=== PATIENT | female | born 1975 | race Two or more races ===

== ENCOUNTER 2017-01-11 18:31 | Inpatient (IN) | payer BC, SELFPAY ==
[~2017-01-11] VITALS: Ht 162.6 cm; Wt 77.3 kg
[2017-01-11] MEDS: DOCUSATE SODIUM 100 MG CAP PO SCH (03:00)
[2017-01-11] MEDS ORDERED: PHEN-501 (18:46)
[2017-01-11] MEDS ORDERED: NITR100C2 (18:46)
[2017-01-11 20:24] LABS: MICROSCOPIC INDICATED? MAN YES (NO)
[2017-01-11 20:42] LABS: BACTERIA, URINE MOD AMOUNT; HYALINE CAST, URINE NONE SEEN /lpf (0-1); SQUAMOUS EPITHELIAL CELL URINE SMALL AMOUNT /hpf (SMALL AMT); WBC, URINE 30-40 /hpf (0-3)
[2017-01-11 20:43] LABS: MICROSCOPIC EXAM PERFORMED
[2017-01-11] MEDS ORDERED: NS 1,000 ML IV ONE ×2 (20:45→23:00)
[2017-01-11 21:23] LABS: BASO % 0.2 % (0.0-1.0); EOS # 0.1 K/mm3 (0.0-0.50); EOS % 0.6 % (0.0-3.0); LARGE UNSTAINED CELL # 0.2 K/mm3 (0.0-0.4); LARGE UNSTAINED CELL % 0.8 % (0.0-4.0); LYMPH % 9.5 % (24.0-44.0); MEAN CORPUSCULAR HEMOGLOBIN 32.2 pg (27.0-33.0); MEAN CORPUSCULAR HGB CONC 34.6 g/dl (32.0-36.5); MONO # 1.1 K/mm3 (0.0-0.8); MONO % 5.4 % (0.0-5.0); NEUTROPHILS # 16.1 K/mm3 (1.8-7.7); NEUTROPHILS % 83.5 % (36.0-66.0); PLATELET COUNT, AUTOMATED 200 k/mm3 (150-450); RED CELL DISTRIBUTION WIDTH 12.3 % (11.5-14.5); WHITE BLOOD COUNT 19.3 K/mm3 (4.0-10.0)
[2017-01-11 21:30] LABS: ANION GAP 13 MEQ/L (8-16); BLOOD UREA NITROGEN 8 MG/DL (7-18); CALCIUM LEVEL 8.5 MG/DL (8.5-10.1); CARBON DIOXIDE LEVEL 18 MEQ/L (21-32); CHLORIDE LEVEL 107 MEQ/L (98-107); CREATININE FOR GFR 0.64 MG/DL (0.55-1.02); GLOMERULAR FILTRATION RATE > 60.0 (>60); GLUCOSE, FASTING 102 MG/DL (70-105); POTASSIUM SERUM 4.1 MEQ/L (3.5-5.1); SODIUM LEVEL 138 MEQ/L (136-145)
[2017-01-11] MEDS ORDERED: cefTRIAXone SOD 1 GM in D5W MINI-BAG PLUS 50 ML IV ONE (21:30)
[2017-01-11] MEDS ORDERED: KETOROLAC 30 MG/ML VIAL (J1885) IV ONE (22:30)
--- NOTE | 2017-01-11 22:50 | REPUSA ---
CLINICAL HISTORY: Right flank pain. TECHNIQUE: CT abdomen and pelvis without contrast. Total DLP 560 mGy*cm. COMPARISON: No pertinent prior studies are available at this time. CT ABDOMEN WITHOUT CONTRAST: Lung bases: No lung base infiltrate or effusion. Liver: 19 cm hepatomegaly. No intrahepatic ductal dilation. Gallbladder: Normally distended. Pancreas: No pancreatic duct dilation. Bowel loops: Nondistended. Spleen: 12.4 cm splenomegaly. Adrenals: Normal size. Right kidney: There is right perinephric stranding and mild hydroureter. However, a discrete stone is not seen along the course of the ureter and there is no kimberlee hydronephrosis. Left kidney: Punctate 1 mm peripapillary stones (coronal reconstruction image 58) without hydronephro sis. Aorta: Normal caliber. Peritoneum: No free air. Anterior abdominal wall: There is a small low midline fatty hernia. CT PELVIS WITHOUT CONTRAST: Colon: Nondistended. Bladder: Normally distended. Pelvic organs: Unremarkable. Peritoneum: No fluid. Skeleton: No acute findings. IMPRESSION: 1. Right perinephric stranding and mild hydroureter without visible stone. This may represent sequela e of recently passed stone. 2. Left nephrolithiasis without hydronephrosis. 3. Mild hepatosplenomegaly. Correlate with hepatic enzymes to exclude underlying liver disease.
[2017-01-12] MEDS ORDERED: MORPHINE 2 MG/ML 1ML SYRINGE IV PRN ×2 (00:30)
--- NOTE | 2017-01-12 01:47 | HPE ---
DATE OF ADMISSION: 01/12/2017 PRIMARY CARE PROVIDER: None listed. CHIEF COMPLAINT: Right flank pain. HISTORY OF PRESENT ILLNESS: 41-year-old female that was seen and treated to Urgent Care a few days ago for urinary tract infection placed on Pyridium and Macrobid stated that her symptoms have gotten worse over the last 24 hours. She has had fevers, chills, rigors since last night, some nausea, vomiting. She states that she feels that she continues to void frequently. She denies any hematuria or dysuria, but is now having right flank pain as well and was instructed to come to the emergency department. PAST MEDICAL HISTORY: None reported. She has been relatively healthy. PAST SURGICAL HISTORY: times five with five children. She does have a history of deviated septum repair. FAMILY HISTORY: Noncontributory. SOCIAL HISTORY: She denies tobacco use. No alcohol use. No IV drug use. No recent sick contacts. No pets. ALLERGIES: No known drug allergies. CURRENT HOME MEDICATIONS: - Pyridium 200 mg three times a day - Macrobid 100 mg twice a day - [id number] Motrin 1 to 2 tablets three to four times daily as needed REVIEW OF SYSTEMS: CONSTITUTIONAL: She has had fevers, chills or rigors as indicated above. HEENT: She denies headache, lightheaded dizziness, blurry vision, double vision or tinnitus. No difficulty with speech or swallow. CARDIOVASCULAR: No chest pain, palpitations, no paroxysmal nocturnal dyspnea (PND), orthopnea. No lower extremity edema. PULMONARY: She denies productive sputum, cough or hemoptysis. GASTROINTESTINAL (GI): No nausea, vomiting, diarrhea. Bowel movements have been regular. She denies any hematochezia. GENITOURINARY (): She has had dysuria a few days ago, some frequency. Her urination has been discolored from the Pyridium, but she denies any hematuria and she does have a right flank pain. MUSCULOSKELETAL: No bone loss or joint pain swelling or erythema. NEUROLOGIC: She denies paresthesias, paralysis. No headaches. ENDOCRINE: Negative for diabetes. No history of thyroid disorder. LYMPHATICS: No lumps, bumps, swelling in neck, axilla or groin. No night sweats or weight loss prior to this recent urinary tract infection. HEMATOLOGY: Negative for bleeding or bruising disorder. No prior history of venous thromboembolism. ONCOLOGY: Negative for cancer. PSYCHIATRIC: Negative for depression. No suicidal ideation. No audio or visual hallucinations. 10-point review of systems complete pertinent positives are listed. PHYSICAL EXAMINATION: Temperature is 97.6, pulse is 112, respiratory rate 18 nonlabored, blood pressure (BP) 115/73, SPO2 is 97% on room air. She describes her right flank pain as 7/10 and sharp in nature. HEENT: Head is atraumatic and cephalic. Eyes: Pupils equally round and reactive to light. Throat clear. NECK: Supple. No adenopathy. No jugular venous distension (JVD). LUNGS: Clear to auscultation bilaterally. HEART: Regular rhythm. abdomen: Soft with some vague suprapubic tenderness. Positive bowel sounds. She does have some right costovertebral angle (CVA) tenderness. EXTREMITIES: No edema or calf tenderness. LABORATORY DATA: White count is 19.3, hemoglobin 14.2, platelets 200,000. Sodium 138, potassium 4.1, chloride 107, bicarbonate 18, anion gap 13, BUN is 8, creatinine 0.64, glucose 102. Urinalysis: Hazy 3 to 5 red blood cells, 30 to 40 white blood cells, moderate amount of bacteria. Urine culture and blood cultures are pending at this time. CT scan of the abdomen and pelvis does demonstrate perinephric stranding on the right, mild hydroureter without visible stone may represent sequela of a recently passed stone. She does have noted left nephrolithiasis without hydronephrosis and mild hepatosplenomegaly, which we will go ahead and check liver enzymes on her as well. IMPRESSION: Ms. Linder is a pleasant 41-year-old female who unfortunately has a right pyelonephritis with elevated white count. Blood pressure is normal. There was no lactic acid ordered on admission. I will go ahead and add that on. She did however receive IV fluid bolus and will continue with IV fluids as outlined, as well as Rocephin that has been started already PROBLEM LIST: 1. Pyelonephritis. 2. Hepatosplenomegaly. Will go ahead and check liver function tests. 3. Otherwise healthy, 41-year-old female. PLAN: The patient will be admitted to [facility]. IV fluids, IV Rocephin. Continue with pain control and IV fluids as outlined. Will check urine culture, blood cultures, deep vein thrombosis (DVT) prophylaxis with Lovenox. DISPOSITION: Anticipate home discharge after two midnights.
[2017-01-12 02:40] VITALS: BP 133/79
[2017-01-12] MEDS: NS 1,000 ML IV SCH ×4 (03:10→21:36)
[2017-01-12] MEDS: ACETAMINOPHEN TAB 650MG DOSE (2X325MG) PO PRN ×3 (03:11→21:36)
[2017-01-12] MEDS: PERCOCET 5MG/325MG TAB PO PRN ×2 (03:12→16:03)
[2017-01-12] MEDS: ONDANSETRON 4MG/2ML VIAL (J2405) IV PRN ×2 (03:26→13:55)
[2017-01-12] MEDS: KETOROLAC 30 MG/ML VIAL (J1885) IV SCH ×4 (05:01→21:36)
[2017-01-12 06:59] LABS: MEAN CORPUSCULAR HEMOGLOBIN 32.5 pg (27.0-33.0); MEAN CORPUSCULAR HGB CONC 34.7 g/dl (32.0-36.5); MEAN CORPUSCULAR VOLUME 93.7 fl (80.0-96.0); RED CELL DISTRIBUTION WIDTH 12.4 % (11.5-14.5); WHITE BLOOD COUNT 12.4 K/mm3 (4.0-10.0)
[2017-01-12 07:29] LABS: ALBUMIN 2.8 GM/DL (3.2-5.2); ANION GAP 9 MEQ/L (8-16); BLOOD UREA NITROGEN 7 MG/DL (7-18); CALCIUM LEVEL 7.6 MG/DL (8.5-10.1); CARBON DIOXIDE LEVEL 22 MEQ/L (21-32); CHLORIDE LEVEL 111 MEQ/L (98-107); CREATININE FOR GFR 0.47 MG/DL (0.55-1.02); GLOMERULAR FILTRATION RATE > 60.0 (>60); GLUCOSE, FASTING 82 MG/DL (70-105); PHOSPHORUS LEVEL 2.8 MG/DL (2.5-4.9); POTASSIUM SERUM 3.4 MEQ/L (3.5-5.1); SODIUM LEVEL 142 MEQ/L (136-145)
[2017-01-12 08:00] VITALS: BP 100/55
[2017-01-12] MEDS: DOCUSATE SODIUM 100 MG CAP PO SCH ×2 (08:57→21:36)
[2017-01-12] MEDS: ENOXAPARIN 40 MG/0.4 ML SYRINGE (J1650) SC SCH (08:58)
--- NOTE | 2017-01-12 13:51 | IPNPDOC ---
Date Seen The patient was seen on 01/12/17. Progress Note Hospitalist Progress Note Subjective: Patient states that she already feels better than when she arrived Objective: Physical Exam: Vitals: Vital Sign - Last 24 Hours 01/11/17 01/11/17 01/11/17 01/12/17 18:32 22:42 22:51 00:11 Temp 97.6 Pulse 135 112 Resp 18 18 16 B/P (MAP) 156/81 (106) 115/73 (87) Pulse Ox 97 97 O2 Delivery Room Air 01/12/17 01/12/17 01/12/17 01/12/17 00:56 01:26 02:40 03:12 Temp 100.1 101.9 Pulse 108 119 Resp 18 18 18 18 B/P (MAP) 118/60 (79) 133/79 (97) Pulse Ox 99 100 O2 Delivery Room Air Room Air 01/12/17 01/12/17 03:42 08:00 Temp 97.2 Pulse 78 Resp 18 18 B/P (MAP) 100/55 (70) Pulse Ox 97 O2 Delivery Room Air General: Awake, Alert, no acute distress HEENT: Normocephalic, atraumatic, extraocular movements intact CV: Regular rate and rhythm Lungs: Clear to auscultation bilaterally Abd: Soft, bowel sounds present, mild tenderness to palpation in the right lower quadrant Extremities: No edema Neuro: Alert and oriented 3, normal speech Psych: And normal mood and affect Labs and Imaging: Laboratory Tests 01/11/17 20:47 Red Blood Count 4.43, Mean Corpuscular Volume 93.0, Mean Corpuscular Hemoglobin 32.2, Mean Corpuscular Hemoglobin Concent 34.6, Red Cell Distribution Width 12.3 , Neutrophils (%) (Auto) 83.5 H, Lymphocytes (%) (Auto) 9.5 L, Monocytes (%) ( Auto) 5.4 H, Eosinophils (%) (Auto) 0.6, Basophils (%) (Auto) 0.2, Neutrophils # (Auto) 16.1 H, Lymphocytes # (Auto) 2.0, Monocytes # (Auto) 1.1 H, Eosinophils # (Auto) 0.1, Basophils # (Auto) 0.0, Calcium Level 8.5 01/12/17 06:38 Red Blood Count 3.49 L, Mean Corpuscular Volume 93.7, Mean Corpuscular Hemoglobin 32.5, Mean Corpuscular Hemoglobin Concent 34.7, Red Cell Distribution Width 12.4, Anion Gap 9 Assessment and Plan: 41-year-old healthy female who presented to the emergency department with fevers , chills, vomiting and has been admitted with pyelonephritis. 1. Pyelonephritis: The patient was febrile to 101.9 upon admission, but fevers seem to be subsiding at this point. Her WBC has already improved from 19.3- 12.4. Blood and urine cultures are pending. We will continue Rocephin, as well as normal saline. CT of the abdomen and pelvis does not show any evidence of abscess 2. Hepatosplenomegaly: This was noted on CT of the abdomen and pelvis. We will check liver function tests. DVT prophylaxis: Lovenox Dispo: anticipate home in the next 24-48 hours VS, I&O, 24H, Fishbone Vital Signs/I&O Vital Signs Date Time Temp Pulse Resp B/P (MAP) Pulse Ox O2 Delivery O2 Flow Rate FiO2 01/12/17 08:00 97.2 78 18 100/55 (70) 97 Room Air I&O- Last 24 Hours up to 6 AM 01/12/17 06:00 Intake Total 2290 ml Output Total 400 ml Balance 1890 ml Laboratory Data 24H LABS Laboratory Tests 2 01/11/17 20:15: Bedside Urine Color (LAB) AMBERH, Bedside Urine Appearance (LAB) HAZYH, Bedside Urine pH (LAB) OBSCUREDH, Bedside Urine Specific [place] (LAB 1.016, Bedside Urine Protein (LAB) OBSCUREDH, Bedside Urine Glucose (UA) OBSCUREDH, Bedside Urine Ketones (LAB) OBSCUREDH, Bedside Urine Blood OBSCUREDH, Bedside Urine Nitrite (LAB) OBSCUREDH, Bedside Urine Bilirubin (LAB) OBSCUREDH, Bedside Urine Urobilinogen (LAB) OBSCUREDH, Bedside Urine Leukocyte Esterase (L OBSCUREDH, Urine WBC 30-40H, Urine RBC 3-5H, Urine Squamous Epithelial Cells SMALL AMOUNT, Urine Bacteria MOD AMOUNTH, Urine Hyaline Casts NONE SEEN, Urine Mucus SMALL AMOUNTH, Urine Sediment Examination PERFORMED 01/11/17 20:47: White Blood Count 19.3H, Red Blood Count 4.43, Hemoglobin 14.2, Hematocrit 41.2 , Mean Corpuscular Volume 93.0, Mean Corpuscular Hemoglobin 32.2, Mean Corpuscular Hemoglobin Concent 34.6, Red Cell Distribution Width 12.3, Platelet Count 200, Neutrophils (%) (Auto) 83.5H, Lymphocytes (%) (Auto) 9.5L, Monocytes (%) (Auto) 5.4H, Eosinophils (%) (Auto) 0.6, Basophils (%) (Auto) 0.2, Neutrophils # (Auto) 16.1H, Lymphocytes # (Auto) 2.0, Monocytes # (Auto) 1.1H, Eosinophils # (Auto) 0.1, Basophils # (Auto) 0.0, Large Unclassified Cells % 0.8 , Large Unclassified Cells # 0.2, Anion Gap 13, Glomerular Filtration Rate > 60.0, Blood Urea Nitrogen 8, Creatinine 0.64, Sodium Level 138, Potassium Level 4.1, Chloride Level 107, Carbon Dioxide Level 18L, Calcium Level 8.5 01/12/17 02:05: Lactic Acid Level 0.9 01/12/17 06:38: Anion Gap 9, Glomerular Filtration Rate > 60.0, Blood Urea Nitrogen 7, Creatinine 0.47L, Sodium Level 142, Potassium Level 3.4L, Chloride Level 111H, Carbon Dioxide Level 22, Calcium Level 7.6L, Phosphorus Level 2.8, Albumin 2.8L CBC/BMP Laboratory Tests 01/11/17 20:47 Red Blood Count 4.43, Mean Corpuscular Volume 93.0, Mean Corpuscular Hemoglobin 32.2, Mean Corpuscular Hemoglobin Concent 34.6, Red Cell Distribution Width 12.3 , Neutrophils (%) (Auto) 83.5 H, Lymphocytes (%) (Auto) 9.5 L, Monocytes (%) ( Auto) 5.4 H, Eosinophils (%) (Auto) 0.6, Basophils (%) (Auto) 0.2, Neutrophils # (Auto) 16.1 H, Lymphocytes # (Auto) 2.0, Monocytes # (Auto) 1.1 H, Eosinophils # (Auto) 0.1, Basophils # (Auto) 0.0, Calcium Level 8.5 01/12/17 06:38 Red Blood Count 3.49 L, Mean Corpuscular Volume 93.7, Mean Corpuscular Hemoglobin 32.5, Mean Corpuscular Hemoglobin Concent 34.7, Red Cell Distribution Width 12.4, Anion Gap 9 Microbiology Microbiology 01/12/17 Blood Culture, Received Pending 01/12/17 Blood Culture, Received Pending 01/11/17 Urine Culture - Final, Complete TAHIRA KNIGHT Jan 12, 2017 13:51
[2017-01-12] MEDS ORDERED: SODIUM CHLORIDE NASAL 0.65% SPRAY BTL (OCEAN) PRN (14:00)
[2017-01-12 16:00] VITALS: BP 138/89
[2017-01-12 20:00] VITALS: BP 134/80
[2017-01-12] MEDS: cefTRIAXone SOD 1 GM in D5W MINI-BAG PLUS 50 ML IV SCH (21:36)
[2017-01-13] VITALS: BP 102/57
[2017-01-13] MEDS: NS 1,000 ML IV SCH ×2 (03:14→11:46)
[2017-01-13] MEDS: KETOROLAC 30 MG/ML VIAL (J1885) IV SCH ×2 (03:14→09:57)
[2017-01-13] MEDS: ACETAMINOPHEN TAB 650MG DOSE (2X325MG) PO PRN (03:14)
[2017-01-13 04:00] VITALS: BP 145/77
[2017-01-13 06:44] LABS: MEAN CORPUSCULAR HEMOGLOBIN 32.2 pg (27.0-33.0); MEAN CORPUSCULAR HGB CONC 35.1 g/dl (32.0-36.5); MEAN CORPUSCULAR VOLUME 91.5 fl (80.0-96.0); RED CELL DISTRIBUTION WIDTH 12.1 % (11.5-14.5); WHITE BLOOD COUNT 7.2 K/mm3 (4.0-10.0)
[2017-01-13 07:10] LABS: ALBUMIN 2.7 GM/DL (3.2-5.2); ALBUMIN/GLOBULIN RATIO 0.75 (1.00-1.93); ALKALINE PHOSPHATASE 71 U/L (45-117); ALT/SGPT 65 U/L (12-78); ANION GAP 6 MEQ/L (8-16); AST/SGOT 56 U/L (15-37); BILIRUBIN,TOTAL 0.3 MG/DL (0.2-1.0); BLOOD UREA NITROGEN 5 MG/DL (7-18); CALCIUM LEVEL 7.8 MG/DL (8.5-10.1); CARBON DIOXIDE LEVEL 24 MEQ/L (21-32); CHLORIDE LEVEL 113 MEQ/L (98-107); CREATININE FOR GFR 0.51 MG/DL (0.55-1.02); GLOMERULAR FILTRATION RATE > 60.0 (>60); GLUCOSE, FASTING 97 MG/DL (70-105); MAGNESIUM LEVEL 2.1 MG/DL (1.8-2.4); PHOSPHORUS LEVEL 1.5 MG/DL (2.5-4.9); POTASSIUM SERUM 3.4 MEQ/L (3.5-5.1); SODIUM LEVEL 143 MEQ/L (136-145); TOTAL PROTEIN 6.3 GM/DL (6.4-8.2)
[2017-01-13 08:00] VITALS: BP 129/81
[2017-01-13] MEDS ORDERED: POTASSIUM CHLORIDE 10 MEQ SR TABLET PO ONE (08:00)
[2017-01-13] MEDS: DOCUSATE SODIUM 100 MG CAP PO SCH ×2 (08:47→20:42)
[2017-01-13] MEDS: ENOXAPARIN 40 MG/0.4 ML SYRINGE (J1650) SC SCH (08:48)
[2017-01-13] MEDS: ONDANSETRON 4MG/2ML VIAL (J2405) IV PRN (10:07)
[2017-01-13 12:00] VITALS: BP 134/89
[2017-01-13] MEDS ORDERED: KETOROLAC TROMETHAMINE 10 MG TAB PO PRN (14:15)
[2017-01-13] MEDS: PERCOCET 5MG/325MG TAB PO PRN ×2 (14:15→20:41)
--- NOTE | 2017-01-13 14:21 | IPNPDOC ---
Date Seen The patient was seen on 01/13/17. Progress Note Hospitalist Progress Note Subjective: Patient states that the pain in her back is improving Objective: Physical Exam: Vitals: Vital Sign - Last 24 Hours 01/12/17 01/12/17 01/12/17 01/12/17 14:40 16:00 16:03 20:00 Temp 102.7 99.3 99.4 Pulse 110 108 Resp 18 16 18 B/P (MAP) 138/89 (105) 134/80 (98) Pulse Ox 99 98 O2 Delivery Room Air Room Air 01/13/17 01/13/17 01/13/17 01/13/17 00:00 04:00 08:00 12:00 Temp 98.5 99.2 98.4 98.2 Pulse 100 113 97 94 Resp 18 20 16 18 B/P (MAP) 102/57 (72) 145/77 (99) 129/81 (97) 134/89 (104) Pulse Ox 98 100 98 98 O2 Delivery Room Air Room Air Room Air Room Air General: Awake, Alert, no acute distress HEENT: Normocephalic, atraumatic, extraocular movements intact CV: Regular rate and rhythm Lungs: Clear to auscultation bilaterally Abd: Soft, bowel sounds present, no TTP Extremities: No edema Neuro: Alert and oriented 3, normal speech Psych: normal mood and affect Labs and Imaging: Laboratory Tests 01/13/17 06:34 Red Blood Count 3.62 L, Mean Corpuscular Volume 91.5, Mean Corpuscular Hemoglobin 32.2, Mean Corpuscular Hemoglobin Concent 35.1, Red Cell Distribution Width 12.1, Calcium Level 7.8 L, Phosphorus Level 1.5 #L, Aspartate Amino Transf (AST/SGOT) 56 H, Alanine Aminotransferase (ALT/SGPT) 65, Alkaline Phosphatase 71, Total Bilirubin 0.3, Total Protein 6.3 L, Albumin 2.7 L Assessment and Plan: 41-year-old healthy female who presented to the emergency department with fevers , chills, vomiting and has been admitted with pyelonephritis. 1. Pyelonephritis: The patient was febrile to 102.7 yesterday afternoon. Her WBC has already improved from 19.3 to WNL. Blood cultures are pending. Urine cx from the ED is not growing anything, but the patient had already received macrobid; outpatient urine cx is growing E.coli sensitive to cephalosporins. We will continue Rocephin, third dose tonight, then change to PO keflex. CT of the abdomen and pelvis does not show any evidence of abscess 2. Hepatosplenomegaly: This was noted on CT of the abdomen and pelvis. LFTs are normal other than a mildly elevated AST. She will need this rechecked as an outpatient after her acute illness resolves. 3. : Patient tells me today that she is pumping her breastmilk and hopes to give it to her child. Confirmed via [facility] that there is no contraindication to rocephin or keflex while . 4. Hypokalemia: Replacing. DVT prophylaxis: Lovenox Dispo: anticipate home tomorrow if afebrile VS, I&O, 24H, Fishbone Vital Signs/I&O Vital Signs Date Time Temp Pulse Resp B/P (MAP) Pulse Ox O2 Delivery O2 Flow Rate FiO2 01/13/17 12:00 98.2 94 18 134/89 (104) 98 Room Air I&O- Last 24 Hours up to 6 AM 01/13/17 06:00 Intake Total 3120 ml Output Total 1700 ml Balance 1420 ml Laboratory Data 24H LABS Laboratory Tests 2 01/13/17 06:34: Anion Gap 6L, Glomerular Filtration Rate > 60.0, Blood Urea Nitrogen 5L, Creatinine 0.51L, Sodium Level 143, Potassium Level 3.4L, Chloride Level 113H, Carbon Dioxide Level 24, Calcium Level 7.8L, Phosphorus Level 1.5#L, Aspartate Amino Transf (AST/SGOT) 56H, Alanine Aminotransferase (ALT/SGPT) 65, Alkaline Phosphatase 71, Total Bilirubin 0.3, Total Protein 6.3L, Albumin 2.7L, Magnesium Level 2.1, Albumin/Globulin Ratio 0.75L CBC/BMP Laboratory Tests 01/13/17 06:34 Red Blood Count 3.62 L, Mean Corpuscular Volume 91.5, Mean Corpuscular Hemoglobin 32.2, Mean Corpuscular Hemoglobin Concent 35.1, Red Cell Distribution Width 12.1, Calcium Level 7.8 L, Phosphorus Level 1.5 #L, Aspartate Amino Transf (AST/SGOT) 56 H, Alanine Aminotransferase (ALT/SGPT) 65, Alkaline Phosphatase 71, Total Bilirubin 0.3, Total Protein 6.3 L, Albumin 2.7 L Microbiology Microbiology 01/12/17 Blood Culture - Preliminary, Resulted No growth after 24 hours . All specim... 01/12/17 Blood Culture - Preliminary, Resulted No growth after 24 hours . All specim... 01/11/17 Urine Culture - Final, Complete TAHIRA KNIGHT Jan 13, 2017 14:21
[2017-01-13 16:00] VITALS: BP 139/88
[2017-01-13] MEDS ORDERED: SLF 3 ML SYR IV PRN (16:15)
[2017-01-13 20:00] VITALS: BP 134/92
[2017-01-13] MEDS: SLF 3 ML SYR IV SCH (22:00)
[2017-01-13] MEDS: cefTRIAXone SOD 1 GM in D5W MINI-BAG PLUS 50 ML IV SCH (22:49)
[2017-01-14] VITALS: BP 114/75
[2017-01-14] MEDS: PERCOCET 5MG/325MG TAB PO PRN ×2 (03:06→08:51)
[2017-01-14] MEDS: SLF 3 ML SYR IV SCH (06:00)
[2017-01-14 08:00] VITALS: BP 139/86
[2017-01-14] MEDS: ONDANSETRON 4MG/2ML VIAL (J2405) IV PRN (08:21)
[2017-01-14 08:25] LABS: MEAN CORPUSCULAR HEMOGLOBIN 31.2 pg (27.0-33.0); MEAN CORPUSCULAR HGB CONC 34.2 g/dl (32.0-36.5); MEAN CORPUSCULAR VOLUME 91.4 fl (80.0-96.0); RED CELL DISTRIBUTION WIDTH 12.4 % (11.5-14.5); WHITE BLOOD COUNT 6.9 K/mm3 (4.0-10.0)
[2017-01-14 08:40] LABS: ALBUMIN 2.6 GM/DL (3.2-5.2); ANION GAP 8 MEQ/L (8-16); BLOOD UREA NITROGEN 4 MG/DL (7-18); CALCIUM LEVEL 8.2 MG/DL (8.5-10.1); CARBON DIOXIDE LEVEL 25 MEQ/L (21-32); CHLORIDE LEVEL 109 MEQ/L (98-107); CREATININE FOR GFR 0.51 MG/DL (0.55-1.02); GLOMERULAR FILTRATION RATE > 60.0 (>60); GLUCOSE, FASTING 88 MG/DL (70-105); MAGNESIUM LEVEL 2.1 MG/DL (1.8-2.4); PHOSPHORUS LEVEL 3.4 MG/DL (2.5-4.9); POTASSIUM SERUM 3.9 MEQ/L (3.5-5.1); SODIUM LEVEL 142 MEQ/L (136-145)
[2017-01-14] MEDS: ENOXAPARIN 40 MG/0.4 ML SYRINGE (J1650) SC SCH (08:50)
[2017-01-14] MEDS: DOCUSATE SODIUM 100 MG CAP PO SCH ×2 (08:50→08:59)
[2017-01-14] MEDS: ACETAMINOPHEN TAB 650MG DOSE (2X325MG) PO PRN (13:09)
[2017-01-14] MEDS ORDERED: KEFL500C17 PO (13:36)
[2017-01-14] MEDS ORDERED: ONDA4TAB5 PO (13:36)
--- NOTE | 2017-01-15 14:20 | DS.PDOC ---
Discharge Summary General Date of Admission Jan 12, 2017 at 00:28 Date of Discharge 01/14/2017 Discharge Summary DISCHARGE SUMMARY DATE OF ADMISSION: 01/12/2017 DATE OF DISCHARGE: 01/14/2017 PRIMARY CARE PHYSICIAN: Leroy - was set up with Jody Frost at discharge DISCHARGE DIAGNOS(E)S: Acute pyelonephritis Hepatosplenomegaly HPI & HOSPITAL COURSE: 41-year-old healthy female who presented to the emergency department with fevers , chills, vomiting and has been admitted with pyelonephritis. 1. Pyelonephritis: The patient has now been afebrile >24H. Her WBC has already improved from 19.3 to WNL. Blood cultures are negative. Urine cx from the ED is not growing anything, but the patient had already received macrobid; outpatient urine cx is growing E.coli sensitive to cephalosporins. She received 3 doses Rocephin, and at discharge we will change to PO keflex. CT of the abdomen and pelvis does not show any evidence of abscess 2. Hepatosplenomegaly: This was noted on CT of the abdomen and pelvis. LFTs are normal other than a mildly elevated AST. She will need this rechecked as an outpatient after her acute illness resolves. 3. : Patient told me on 01/13 that she is pumping her breastmilk and hopes to give it to her child. Confirmed via [facility] that there is no contraindication to rocephin or keflex while . 4. Hypokalemia: Replaced. DVT prophylaxis: Lovenox PHYSICAL EXAMINATION ON DISCHARGE: VITAL SIGNS: Vital Signs Date Time Temp Pulse Resp B/P (MAP) Pulse Ox O2 Delivery O2 Flow Rate FiO2 01/14/17 09:30 18 01/14/17 08:00 97.0 87 139/86 (103) 100 Room Air General: Awake, Alert, no acute distress HEENT: Normocephalic, atraumatic, extraocular movements intact CV: Regular rate and rhythm Lungs: Clear to auscultation bilaterally Abd: Soft, bowel sounds present, no TTP Extremities: No edema Neuro: Alert and oriented 3, normal speech Psych: normal mood and affect DISPOSITION: Home The patient requested a note for her to be able to give to her 's work. Per the patient's request, I included the following details: Dates that the patient was admitted for, the fact that she had a kidney infection, the fact that she will need 11 more days of antibiotics, and the fact that she'll need to see her PCP next week. DISCHARGE INSTRUCTIONS: Follow up with new PCP Jody Crews within one week. PCP will need to check LFTs when patient has recovered from this acute illness. If symptoms return, or if you experience worsening of your symptoms, please call your doctor or return to the emergency department. ITEMS THAT NEED OUTPATIENT FOLLOWUP: Recheck of LFTs when patient has recovered from this acute illness Patient was seen and examined by me on the day of discharge, and I spent a total time of less than 30 minutes on this discharge. Vital Signs/I&Os Vital Signs Date Time Temp Pulse Resp B/P (MAP) Pulse Ox O2 Delivery O2 Flow Rate FiO2 01/14/17 09:30 18 01/14/17 08:00 97.0 87 139/86 (103) 100 Room Air I&O- Last 24 Hours up to 6 AM 01/15/17 06:00 Intake Total 1080 ml Output Total 1000 ml Balance 80 ml Microbiology Microbiology 01/12/17 Blood Culture - Preliminary, Resulted No Growth after 72 hours. All specime... 01/12/17 Blood Culture - Preliminary, Resulted No Growth after 72 hours. All specime... 01/11/17 Urine Culture - Final, Complete Discharge Medications Scheduled Cephalexin Monohydrate (Keflex) 500 Mg Cap, 500 MG PO BID FOR 11 DAYS - first dose tonight Scheduled PRN Ondansetron HCl (Ondansetron HCl) 4 Mg Tab, 4 MG PO Q4HP PRN for NAUSEA Allergies Coded Allergies: No Known Drug Allergy (Verified Allergy, Unknown, 09/14/12) JODY KNIGHT Jan 15, 2017 14:20
== END 2017-01-14 15:35 | disposition home or self-care (01) | DRG 463 ==
LOC: M ED 18:31 → M ED INP 01-12 00:28 → M PED 01-12 02:38
PROVIDERS: ADMIT Hospitalist; ATTEND Hospitalist
DX: N12 Tubulo-interstitial nephritis, not specified as acute or chronic (principal); R16.1 Splenomegaly, not elsewhere classified; E87.6 Hypokalemia; Z79.899 Other long term (current) drug therapy

== ENCOUNTER → 2017-01-11 | Outpatient (REF) | payer BC ==
[~2017-01-11] MED LIST: KEFL500C17 PO; NITR100C2; ONDA4TAB5 PO; PHEN-501
== END ==
LOC: M LAB REF 12:12
PROVIDERS: ATTEND Physician Assistant
DX: R30.0 Dysuria (principal)